=== PATIENT | male | born 2000 | race Caucasian/White ===

== ENCOUNTER 2021-10-19 13:04 | Emergency (ER) | payer BC ==
[2021-10-19] MEDS ORDERED: Bacitracin Oint 1 GM U/D Packet TOP ONE (15:31)
[2021-10-19] MEDS ORDERED: Lidocaine 1% with EPINEPHrine 1:100,000 50 ML MDV SUBCUT STA (15:31)
[2021-10-19] MEDS ORDERED: Diphtheria,Pertussis(Acell),Tetanus Vaccine 0.5 ML Syringe IM ONE (15:49)
== END 2021-10-19 16:08 | disposition home or self-care (01) ==
LOC: JP.ED 13:04
DX: S71.111A Laceration without foreign body, right thigh, initial encounter (principal); Z23 Encounter for immunization; W25.XXXA Contact with sharp glass, initial encounter
CPT/HCPCS: 12002; 90471; 90715; 99281; 99282-25